=== PATIENT | female | born 1970 | race Caucasian/White ===

== ENCOUNTER 2024-08-21 13:08 | Outpatient (AMB) | payer OTHER, SELFPAY ==
--- NOTE | 2024-08-21 11:41 | A.OFFPC_ITS ---
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 Intake Note: New patient visit Pulverizer Operator Required: No Allergies No Known Allergies Allergy (Verified 08/21/24 13:15) Medication List - Last Reconciled 08/21/24 by Micheline Law PA-C ascorbate calcium (vitamin C) 500 mg PO DAILY bimatoprost 0.03% (Latisse) 1 appl topical BEDTIME cholecalciferol (vitamin D3) , fluoxetine 10 mg PO DAILY Tobacco use date assessed: 08/21/24 Dental Screening Dental Screen Date: 08/21/24 Did you have a dental visit in the last 12 months?: Yes Did you have a dental problem in the last 6 months where you did not have access to dental care?: No Was dental information given to patient?: Patient has dentist HPI CLINICAL TRIAL DATA MANAGER- PE request HPI Details Pt is a 54 y/o feamle who presents today to establish care. Hx of gilbert's disease, glaucoma suspect, basal cell carcinoma in 2022, hormonal/stress induced headaches, intermittent depression/mood changes. She states that she recently moved back to the area from [facility] and does have a list of things to go over. She overall takes very good care of herself. States that she eats healthy and exercises regularly. She uses exercise as a way to cope with stress. Takes supplements/vitamins. Psych: on and off of prozac for years which is effective. currently weaning down. No SI/HI. Wants to cut this out and vitamin. Derm: needs a derm in this area for bcc management as she had a basal cell removed from the right side of her face in 2022. She does complain today of shortened and sparse eyelashes. Requests eyelash serum. Mammo: utd, 2023 [facility] Interviews Intern: needs one Colonoscopy: 2020- due in 2029 Bone density: most menopause PFSH Medical History (Updated 08/21/24 @ 13:52 by Micheline Law PA-C) BCC (basal cell carcinoma of skin) Family History Paternal Grandmother FH: mental illness Father Alcoholic Other Skin cancer Substance abuse Social History (Updated 08/21/24 @ 13:15 by Ryanne Lancaster [facility]) Housing: House Alcohol intake: current Comment: 0-2 monthly Patient Tobacco Use Status: Never used Tobacco e-Cigarette/Vaping Use: Never Used Second Hand Smoke Exposure: No service: No Current occupational status: employed 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 1. Little interest or pleasure in doing things: not at all 2. Feeling down, depressed, or hopeless: not at all 3. Trouble falling or staying asleep, or sleeping too much: not at all 4. Feeling tired or having little energy: not at all 5. Poor appetite or overeating: not at all 6. Feeling bad about yourself - or that you are a failure or have let yourself or your family down: not at all 7. Trouble concentrating on things, such as reading the newspaper or watching television: not at all 8. Moving or speaking so slowly that other people could have noticed. Or the opposite - being so fidgety or restless that you have been moving around a lot more than usual: not at all 9. Thoughts that you would be better off or of hurting yourself in some way: not at all Total score: 0 Depression Screening Interpretation: Negative Depression Screening Done: Yes 17160 - PHQ-9 Billing: Yes Source: Developed by Drs. Carter Cardoso, Julia Cao, Pablo Marcelino and colleagues, with an educational mireya from [employer]. Thrive Questionnaire Date Thrive assessed: 08/14/24 I am a: Patient What is your living situation today?: I have a steady place to live Within the past 12 months, did the food you bought not last and you didn't have the money to get more?: Never true Within the past 12 months, did you worry whether your food would run out before you got money to buy more?: Never true Do you have trouble paying for medicines?: No Do you have trouble getting transportation to medical appointments?: No Do you have trouble paying your heating and electricity bill?: No Do you have trouble taking care of your child, family member or friend?: No Do you have trouble with day-to-day activities such as bathing, preparing meals, shopping, managing finances, etc.?: No Are you currently unemployed and looking for a job?: No Are you interested in more education?: No Currently or been in a relationship where the following occur: No concerns reported THRIVE Score: 0 AUDIT C Alcohol Use Questionnaire (AUDIT-C) 1. How often do you have a drink containing alcohol?: Monthly or less 2. How many drinks containing alcohol do you have on a typical day when you are drinking?: 1 or 2 3. How often do you have six or more drinks on one occasion?: Never Total Score: 1 KELLY-7 AMB Questionnaire KELLY-7 Date KELLY - 7 assessed: 08/21/24 Feeling nervous, anxious, or on edge: 1 = Several days Not being able to stop or control worryin = Not at all Worrying too much about different things: 1 = Several days Trouble relaxin = Several days Being so restless that it is hard to sit still: 1 = Several days Becoming easily annoyed or irritable: 1 = Several days Feeling afraid as if something awful might happen: 1 = Several days Total KELLY-7 score (0-4 normal; 5-9 mild; 10-14 moderate; 15-21 severe): 6 Source: Developed by Drs. Carter Cardoso, Julia Cao, Pablo Marcelino and colleagues, with an educational mireya from [employer]. KELLY-7 Assessment Billing KELLY-7 Assessment Tool: KELLY-7 Assessment 34315 Physical exam (Primary Care) Vital Signs: Last Vital Signs Pulse 63 08/21/24 13:18 BP 112/74 08/21/24 13:18 Pulse Ox 96 08/21/24 13:18 Oxygen Delivery Method Room Air 08/21/24 13:18 BMI result Body Mass Index 25.3 Tobacco/Smoking Status: Tobacco use Status Tobacco use date assessed 08/21/24 08/21/24 13:20 Patient Tobacco Use Status Never used Tobacco 08/21/24 13:20 e-Cigarette/Vaping Use Never Used 08/21/24 13:20 PHQ-9: PHQ-9 Score PHQ-9: Total score 0 08/21/24 13:29 Depression Screening Interpretation: Negative Thrive Assessment: Date of Thrive Assessment Date Thrive assessed 08/14/24 08/21/24 11:41 Currently or been in a relationship where the following occur: No concerns reported Const Orientation/consciousness: patient oriented x3 HENMT Ears: hearing grossly normal bilaterally Neck Thyroid: Thyroid normal Lymphatic: no lymphadenopathy noted Resp Auscultation: clear to auscultation bilaterally Cardio Rate: regular rate Rhythm: regular rhythm Heart sounds: S1 normal heart sound present and S2 normal heart sound present GI Inspection: Yes normal to inspection Palpation (GI): Soft to palpation and Other GI palpation findings present (nontender, no cva tenderness) Auscultation: normoactive bowel sounds Rectal Exam - Female: deferred Skin General skin exam: no rashes or lesions noted Neuro General: patient oriented x3, gait normal and no focal motor deficits Coding Level of Care Code New Pt Level 4 (39825) Complex EM visit Add On G2211 Diagnoses Vitamin D deficiency E55.9 Dysthymic disorder F34.1 Hx of basal cell carcinoma Z85.828 Frequent headaches R51.9 Additional Codes PHQ-9 - 91194 - PHQ-9 Billing: Yes ([id number]) KELLY-7 Assessment Billing - KELLY-7 Assessment Tool: KELLY-7 Assessment 09963 ([id number]) Assessment & Plan Assessment & Plan (1) Vitamin D deficiency: Code(s): E55.9 - Vitamin D deficiency, unspecified Category: Medical Plan: On supplement. We will check (2) Dysthymic disorder: Code(s): F34.1 - Dysthymic disorder Category: Medical Plan: Weaning off of fluoxetine. (3) Hx of basal cell carcinoma: Code(s): Z85.828 - Personal history of other malignant neoplasm of skin Category: Medical Plan: Referral to [facility]. (4) Frequent headaches: Code(s): R51.9 - Headache, unspecified Category: Medical Plan: Avoiding triggers. Plan Referral to gynecology Referral to [facility] Mammogram ordered Bone density ordered Latisse ordered. Discussed risks and benefits and adverse effects of this medication. Labs ordered. We will follow up pending test results. Orders: Orders Complete Blood Count Auto Diff Today E55.9 - Vitamin D deficiency, unspecified, F34.1 - Dysthymic disorder, R51.9 - Headache, unspecified, Z85.828 - Personal history of other malignant neoplasm of skin IRON PROFILE Today E55.9 - Vitamin D deficiency, unspecified, F34.1 - Dysthymic disorder, R51.9 - Headache, unspecified, Z85.828 - Personal history of other malignant neoplasm of skin TSH reflex Free T4 Today E55.9 - Vitamin D deficiency, unspecified, F34.1 - Dysthymic disorder, R51.9 - Headache, unspecified, Z85.828 - Personal history of other malignant neoplasm of skin Magnesium Today E55.9 - Vitamin D deficiency, unspecified, F34.1 - Dysthymic disorder, R51.9 - Headache, unspecified, Z85.828 - Personal history of other malignant neoplasm of skin Vitamin B12 and Folate Today E55.9 - Vitamin D deficiency, unspecified, F34.1 - Dysthymic disorder, R51.9 - Headache, unspecified, Z85.828 - Personal history of other malignant neoplasm of skin Lyme IgG/IgM w/reflex to WB Today E55.9 - Vitamin D deficiency, unspecified, F34.1 - Dysthymic disorder, R51.9 - Headache, unspecified, Z85.828 - Personal history of other malignant neoplasm of skin Vitamin D 1,25 dihydroxy Today E55.9 - Vitamin D deficiency, unspecified, F34.1 - Dysthymic disorder, R51.9 - Headache, unspecified XR DEXA axial skeleton Today N95.1 - Menopausal and female climacteric states, Z13.820 - Encounter for screening for osteoporosis MM screening mammo BI Today Z12.31 - Encounter for screening mammogram for malignant neoplasm of breast Comprehensive [place]. Panel Fast Today E55.9 - Vitamin D deficiency, unspecified, F34.1 - Dysthymic disorder, R51.9 - Headache, unspecified, Z85.828 - Personal history of other malignant neoplasm of skin UA CC w/rflx Micro + Cult Today E55.9 - Vitamin D deficiency, unspecified, F34.1 - Dysthymic disorder, R51.9 - Headache, unspecified, Z13.220 - Encounter for screening for lipoid disorders, Z85.828 - Personal history of other malignant neoplasm of skin Lipid Panel Today E55.9 - Vitamin D deficiency, unspecified, F34.1 - Dysthymic disorder, R51.9 - Headache, unspecified Referrals Dermatology Referral C44.91 - Basal cell carcinoma of skin, unspecified NEUROPHYSIOLOGICAL TECHNICIAN Referral Z01.419 - Encounter for gynecological examination (general) (routine) without abnormal findings Medications: New bimatoprost 0.03% (Latisse) 1 appl topical BEDTIME 5 mL 2RF bimatoprost 0.03% (Latisse) 1 appl topical BEDTIME 5 mL 2RF
[2024-08-21 13:18] VITALS: BP 112/74; PULSE 63; O2SAT 96; BMI 25.3
== END 2024-08-21 14:06 | disposition home or self-care (01) ==
PROVIDERS: PCP Physician Assistant; Visit Provider Physician Assistant
DX: E55.9 Vitamin D deficiency, unspecified (principal); F34.1 Dysthymic disorder; Z85.828 Personal history of other malignant neoplasm of skin; R51.9 Headache, unspecified

== ENCOUNTER → 2024-08-21 13:08 | Outpatient (BNVA) | payer OTHER, SELFPAY | PROVIDERS: PCP Physician Assistant; Visit Provider Physician Assistant | DX: E55.9 Vitamin D deficiency, unspecified (principal); F34.1 Dysthymic disorder; R51.9 Headache, unspecified; Z85.828 Personal history of other malignant neoplasm of skin | CPT/HCPCS: 96127 ==

== ENCOUNTER 2024-09-09 07:30 | Outpatient (REF) | payer OTHER, SELFPAY ==
[2024-09-09 12:10] LABS: Appearance Urine Cloudy; Color Urine Yellow; Glucose Urine UA Negative (Negative); Leukocyte Esterase Urine Negative (Negative); Nitrite Urine Negative (Negative); Urine Blood Negative (Negative); Urine Ketones Negative (Negative); Urine Protein Negative (Neg-Trace)
[2024-09-09 12:25] LABS: MANUAL DIFF FLAG NO
[2024-09-09 12:31] LABS: Basophils Absolute Auto 0.1 X10*3/uL (0.0-0.2); Basophils Percent Auto 1.5 % (0-2); Eosinophils Absolute Auto 0.1 X10*3/uL (0.0-0.4); Eosinophils Percent Auto 2.2 % (0-4); Hematocrit 37.7 % (37.0-47.0); Hemoglobin 12.7 g/dl (12.0-16.0); Imm Gran Abs Auto 0.01 X10*3/uL (0.00-0.03); Imm Gran Pct Auto 0.2 % (0.0-0.4); Lymphocytes Absolute Auto 1.2 X10*3/uL (1.2-4.9); Mean Corpuscular HGB Conc 33.7 g/dl (31.0-35.0); Mean Corpuscular Hemoglobin 30.5 pg (27.0-33.0); Mean Corpuscular Volume 90.4 fL (80.0-98.0); Mean Platelet Volume 9.5 fL (9.4-12.3); Monocytes Absolute Auto 0.4 X10*3/uL (0.1-1.2); Monocytes Percent Auto 9.1 % (2-11); Neutrophils Absolute Auto 2.3 x10*3/uL (2.0-8.3); Platelet Count 189 X10*3/uL (160-400); Red Blood Count 4.17 X10*6/uL (4.20-5.50); White Blood Count 4.1 X10*3/uL (4.8-10.8)
[2024-09-09 12:51] LABS: Alanine Aminotransferase 23 U/L (0-31); Albumin Level 4.5 g/dL (3.5-5.0); Alkaline Phosphatase 70 U/L (39-117); Anion Gap 10 (12-20); Aspartate Amino Transferase 24 U/L (5-31); Bilirubin Total 1.1 mg/dL (0.0-1.0); Blood Urea Nitrogen 8 mg/dL (9-16); Calcium 9.5 mg/dL (8.4-10.2); Carbon Dioxide 30 mmol/L (22-29); Chloride 107 mmol/L (96-108); Cholesterol 183 mg/dL (<200); Estimated Glomerular Filt Rate > 60; Glucose Fasting 88 mg/dL (60-99); HDL Cholesterol 104 mg/dL (>40); Iron 102 mcg/dL (30-160); LDL Cholesterol Calculated 71 mg/dL (<100); Percent Iron Saturation 38 % (15-50); Potassium 3.8 mmol/L (3.3-5.1); Sodium 143 mmol/L (135-145); Total Iron Binding Capacity 271 mcg/dL (228-428); Total Protein 7.2 g/dL (6.5-8.0); Triglycerides 41 mg/dL (<150); Unsaturated Iron Binding 169 ug/dL
[2024-09-09 13:09] LABS: TSH reflex Free T4 3.74 uIU/mL (0.32-4.0)
[2024-09-09 13:11] LABS: Folate 18.8 ng/mL (> or = 4.0); Vitamin B12 732 pg/mL (200-900)
[2024-09-10 21:59] LABS: Lyme Abs Screen <0.90 index
[2024-09-14 06:08] LABS: VITAMIN D (1,25 OH) D3 38 pg/mL; Vit D (1,25-Dihydroxy) Total 38 pg/mL (18-72); Vitamin D (1,25 OH) D2 <8 pg/mL
== END 2024-09-09 07:31 | disposition home or self-care (01) ==
LOC: HO.WFDLDS 07:30
PROVIDERS: Visit Provider Physician Assistant
DX: R51.9 Headache, unspecified (principal); Z85.828 Personal history of other malignant neoplasm of skin; F34.1 Dysthymic disorder; E55.9 Vitamin D deficiency, unspecified; Z13.220 Encounter for screening for lipoid disorders
CPT/HCPCS: 36415; 80053; 80061; 81003; 82607; 82652; 82746; 83540; 83735; 84443; 85025; 86617; 86618

== ENCOUNTER 2024-09-24 09:39 | Outpatient (AMB) | payer OTHER, SELFPAY ==
[2024-09-24 09:43] VITALS: BP 108/66; PULSE 62; TEMP 36.1; O2SAT 99; BMI 21.1
--- NOTE | 2024-09-24 09:43 | AM.OFFWIN_ITS ---
Intake Vital Signs 3 09/24/24 09:43 Height 5 ft 3.5 in Weight 121 lb BMI 21.1 BP 108/66 Blood Pressure Location Rt brachial Position Sitting Pulse 62 Pulse Source Pulse Oximeter Temp 97.0 F Temp Source Oral Pulse Oximetry (%) 99 Intake Visit Reasons: Rash on body /sinus /pain in face Intake Note: pt is here for neck and arm pit rash, sinus pain and congestion Patient Tobacco Use Status: Never used Tobacco Allergies No Known Allergies Allergy (Verified 09/24/24 10:10) Medication List - Last Reconciled 09/24/24 by MARGARETTE Valdovinos- ascorbate calcium (vitamin C) 500 mg PO DAILY bimatoprost 0.03% (Latisse) 1 appl topical BEDTIME cholecalciferol (vitamin D3) , fluoxetine 10 mg PO DAILY Do you need a note to return to daycare/school/sports/work: Yes HPI HPI Comments 2 History of Present Illness0 Details History of Present Illness The patient is a 54-year-old female presenting with complaints of rash and sinus congestion. The sinus symptoms began on Monday with associated nasal congestion, postnasal drip, and eye pressure. She reports intense neck and head pain, intermittent throat discomfort, and sensation in her ear. The rash appeared on Monday, after exhibiting initial itchiness, it now seems to have dried. She reports no new exposures to travel, detergents, or lotions prior to the onset of the rash. For sinus symptoms, she self-medicated with Sudafed, which provided momentary relief but was ultimately ineffective. The patient describes that her throat felt like swollen tonsils but did not worsen into severe sore throat. No significant nasal blockage relief has been achieved to date, despite supportive measures such as a humidifier at home. The patient does not express any exposure to new allergens or irritants recently. She has mild suspicion of a connection between her sinus issues and rash but unclear as per her observation. Exam Awake alert NAD Sclera and conjunctiva clear bilat Nares clear drainage, turbinates within normal limits, no sinus tenderness with palpation bilat TM intact and clear bilat MMM, pharynx mild PND, no exudate RRR LS CTAB Rash - see below L axilla, anterior neck Plan - Address sinusitis with supportive care , including nasal saline rinses and the use of a neti pot to relieve congestion. - Encourage the use of local honey as an antiviral remedy. - Monitor rash; consider topical steroid s if symptoms persist, but patient may choose to observe if they resolve spontaneously. - Continued management and evaluation of postnasal drip symptoms, and discuss potential initiation of antibiotic therapy for sinusitis if symptoms persist beyond 14 days. - Suggest lifestyle measures to alleviat e sinus symptoms, including maintaining a humid environment and avoiding known irritants. Patient was informed and verbally consented to the use of an ambient scribe for clinic note documentation during this visit. This note is constructed using voice recognition software. While every effort has been made to ensure accuracy in medical staff physician, still errors may have been included Sometimes, these errors may affect the content or meaning of the given sentence . Total time spent caring for the patient today was 30 minutes. This includes time spent before the visit reviewing the chart, time spent during the visit, and time spent after the visit on documentation [facility] Medical History (Updated 09/24/24 @ 10:21 [facility] BCC (basal cell carcinoma of skin) Family History Paternal Grandmother FH: mental illness Father Alcoholic Other Skin cancer Substance abuse Social History (Updated 08/21/24 @ 13:15 by Ryanne Lancaster CMA) Housing: House Alcohol intake: current Comment: 0-2 monthly Patient Tobacco Use Status: Never used Tobacco e-Cigarette/Vaping Use: Never Used Second Hand Smoke Exposure: No service: No Current occupational status: employed Current occupation: Theraputic training and support Current occupational exposures/hazards: No Cognitive needs: No Hearing needs: No Vision needs: Yes (glasses) Physical Exam Vital Signs: Last Vital Signs Temp 97.0 F 09/24/24 09:43 Pulse 62 09/24/24 09:43 BP 108/66 09/24/24 09:43 Pulse Ox 99 09/24/24 09:43 BMI result Body Mass Index 21.1 Assessment & Plan Assessment & Plan (1) Rash and nonspecific skin eruption: Code(s): R21 - Rash and other nonspecific skin eruption (2) Nasopharyngitis: Code(s): J00 - Acute nasopharyngitis [common cold] Plan . Coding Level of Care Code Est Pt Level 4 (73114) Diagnoses Rash and nonspecific skin eruption R21 Nasopharyngitis J00
== END 2024-09-24 10:22 | disposition home or self-care (01) ==
LOC: HO.HMCWIW 09:39
PROVIDERS: PCP Physician Assistant; Visit Provider Nurse Practitioner Family
DX: R21 Rash and other nonspecific skin eruption (principal); J00 Acute nasopharyngitis [common cold]

== ENCOUNTER → 2024-09-24 09:39 | Outpatient (BNVA) | payer OTHER, SELFPAY | PROVIDERS: PCP Physician Assistant; Visit Provider Nurse Practitioner Family ==

== ENCOUNTER → 2024-09-26 09:49 | Outpatient (AMB) | payer OTHER, SELFPAY ==
--- NOTE | 2024-09-26 09:45 | MHC.PC.OV ---
Intake Visit Reasons: BLOOD LEVEL CONCERNS Intake Note: Go over labs results. Certified Optician Required: No Allergies No Known Allergies Allergy (Verified 09/24/24 10:10) Tobacco use date assessed: 08/21/24 Dental Screening Dental Screen Date: 08/21/24 HPI BLOOD LEVEL CONCERNS HPI Details Patient is a 54-year-old female who presents today for a follow up. She does have some concerns about the lab work that was recently done. Her BUN was a little on the lower side along with the white blood cell count and red blood cell count. She did end up getting sick with cold symptoms shortly after getting the blood work. She is currently feeling better. She overall feels well and just has the remaining, lingering cold symptoms. Rash has improved/resolved. No sinus pain or pressure. No fevers or chills.. [facility] Medical History (Updated 09/26/24 @ 10:16 by Micheline Law PA-C) BCC (basal cell carcinoma of skin) Family History Paternal Grandmother FH: mental illness Father Alcoholic Other Skin cancer Substance abuse Social History Housing: House Alcohol intake: current Comment: 0-2 monthly Patient Tobacco Use Status: Never used Tobacco e-Cigarette/Vaping Use: Never Used Second Hand Smoke Exposure: No service: No Current occupational status: employed Current occupation: Theraputic training and support Current occupational exposures/hazards: No Cognitive needs: No Hearing needs: No Vision needs: Yes (glasses) Questionnaire Thrive Questionnaire Date Thrive assessed: 08/14/24 I am a: Patient What is your living situation today?: I have a steady place to live Within the past 12 months, did the food you bought not last and you didn't have the money to get more?: Never true Within the past 12 months, did you worry whether your food would run out before you got money to buy more?: Never true Do you have trouble paying for medicines?: No Do you have trouble getting transportation to medical appointments?: No Do you have trouble paying your heating and electricity bill?: No Do you have trouble taking care of your child, family member or friend?: No Do you have trouble with day-to-day activities such as bathing, preparing meals, shopping, managing finances, etc.?: No Are you currently unemployed and looking for a job?: No Are you interested in more education?: No Please select the resources that you would like help with: None Currently or been in a relationship where the following occur: No concerns reported THRIVE Score: 0 KELLY-7 AMB Questionnaire KELLY-7 Date KELLY - 7 assessed: 08/21/24 Source: Developed by Drs. Carter Cardoso, Julia Cao, Pablo Marcelino and colleagues, with an educational mireya from [employer]. Physical exam (Primary Care) Tobacco/Smoking Status: Tobacco use Status Tobacco use date assessed 08/21/24 09/26/24 09:47 Patient Tobacco Use Status Never used Tobacco 09/26/24 09:47 e-Cigarette/Vaping Use Never Used 09/26/24 09:47 Thrive Assessment: Date of Thrive Assessment Date Thrive assessed 08/14/24 09/26/24 09:47 Currently or been in a relationship where the following occur: No concerns reported Telehealth Telehealth Telehealth Platform: Telephone Location of provider rendering services: practice address Location of patient: address on file Patient Identification confirmed using: Name, : Yes Telehealth method: voice only Patient verbally consented to treatment: Yes Patient verbally consented to billing insurance company: Yes Patient informed of any privacy concerns related to visit: Yes Minutes spent on Phone/Video with Pt.: 15 Results Reviewed Results Reviewed: Laboratory Tests 09/09/24 07:32 WBC 4.1 L RBC 4.17 L Hgb 12.7 Hct 37.7 Plt Count 189 Sodium 143 Potassium 3.8 Chloride 107 Carbon Dioxide 30 H Anion Gap 10 L BUN 8 L Creatinine 0.77 Estimated GFR > 60 Fasting Glucose 88 Calcium 9.5 Magnesium 2.0 Iron 102 TIBC 271 % Saturation 38 Unsat Iron Binding 169 Total Bilirubin 1.1 H AST 24 ALT 23 Alkaline Phosphatase 70 Total Protein 7.2 Albumin 4.5 Triglycerides 41 Cholesterol 183 LDL Cholesterol, Calc 71 HDL Cholesterol 104 Vitamin B12 732 1,25 Dihydroxy Vit D 38 Folate 18.8 TSH 3.74 Coding Level of Care Code Tele Est Pt Level 2 (30977) Complex EM visit Add On G2211 Diagnoses Abnormal CBC R79.89 Nasopharyngitis J00 Assessment & Plan Assessment & Plan (1) Abnormal CBC: Code(s): R79.89 - Other specified abnormal findings of blood chemistry Category: Medical Plan: We reviewed labs at length today. We will recheck labs in 6-8 weeks. (2) Nasopharyngitis: Code(s): J00 - Acute nasopharyngitis [common cold] Category: Medical Plan: Improving. Follow up if anything worsens or changes. Orders: Orders Basic Metabolic Panel Today R79.89 - Other specified abnormal findings of blood chemistry Complete Blood Count Auto Diff Today R79.89 - Other specified abnormal findings of blood chemistry
== END ==
LOC: HO.HMCFM 09:49
PROVIDERS: PCP Physician Assistant; Visit Provider Physician Assistant
DX: R79.89 Other specified abnormal findings of blood chemistry (principal); J00 Acute nasopharyngitis [common cold]

== ENCOUNTER 2024-10-10 07:38 | Outpatient (REF) | payer OTHER, SELFPAY ==
--- NOTE | ~2024-10-10 | MM_ITS ---
EXAMINATION: MM SCREENING DIGITAL BREAST TOMOSYNTHESIS, BILATERAL CLINICAL INFORMATION: Screening. Asymptomatic. COMPARISON: Mammography: Comparison with mammography January 2019. TECHNIQUE: Digital breast mammography with tomosynthesis is performed in both the craniocaudal and mediolateral oblique views along with computer-aided detection (CAD). FINDINGS: The breasts are heterogeneously dense, which may obscure small masses (ACR BI-RADS breast composition Category c). There are no significant masses, abnormal calcifications, or other abnormalities. MM/MM tomosynthesis screening BI IMPRESSION: No mammographic evidence of malignancy. ASSESSMENT: BI-RADS BI-RADS 1 - Negative RECOMMENDATION: Routine annual mammography screening. 1 year F/U This examination should not preclude the clinical evaluation of a suspicious palpable abnormality. This patient's information was entered into a reminder system with a target due date for their next mammogram. Electronically signed by: Aissatou Petit DO 10/28/2024 09:22 AM [facility]
--- NOTE | ~2024-10-10 | MM_ITS ---
EXAMINATION: Dual-Energy X-ray Absorptiometry - Bone Density Study HISTORY: Estrogen deficiency TECHNIQUE: [place] Dual energy absorptiometry (DEXA) of the lumbar spine, total left hip, and femoral neck was performed. COMPARISON: There are no prior studies for comparison. FINDINGS: The bone mineral density of the lumbar spine is 1.083 with a T-score of -0.8, and a Z-score of 0.2. The bone mineral density of the left total hip is 0.865 with a T-score of -1.1, and a Z-score of -0.3. The bone mineral density of the left femoral neck is 0.819 with a T-score of -1.6, and a Z-score of -0.4. FRACTURE RISK: The FRAX index suggests a risk of major osteoporotic fracture of 5.0%, and of hip fracture 0.5%. MM/XR DEXA axial skeleton IMPRESSION: Based on bone mineral density, and according to World Health Organization (WHO) criteria, the diagnosis is consistent with osteopenia. All bone density values are in grams per centimeter squared. At this facility, the least significant change in BMD with 95% confidence is 0.022 at the lumbar spine, 0.027 at the hip, and 0.023 at the distal 1/3 radius. Electronically signed by: Carter Navarro MD 10/10/2024 08:59 AM [facility]
== END 2024-10-10 07:39 | disposition home or self-care (01) ==
LOC: HO.MAMMO 07:38
PROVIDERS: PCP Physician Assistant; Visit Provider Physician Assistant
DX: Z12.31 Encounter for screening mammogram for malignant neoplasm of breast (principal); Z13.820 Encounter for screening for osteoporosis; Z78.0 Asymptomatic menopausal state
CPT/HCPCS: 77063; 77067; 77080

== ENCOUNTER → 2024-10-10 08:15 | Outpatient (BNV) | payer OTHER, SELFPAY | PROVIDERS: PCP Physician Assistant; Visit Provider Radiology Diagnostic Radiology | DX: Z12.31 Encounter for screening mammogram for malignant neoplasm of breast (principal) | CPT/HCPCS: 77063; 77067 ==

== ENCOUNTER 2025-01-02 07:37 | Outpatient (REF) | payer OTHER, SELFPAY ==
--- OUTSIDE RECORDS SUMMARY | 2025-01-02 07:39 | XMS_ITS | Clinical Summary ---
Author Organization [facility] Address [address] [place] [address] Care Team Providers Care Premix Operator Concentrate Name Role Phone Unavailable Primary Care Provider Unavailabl e Allergies No known active allergies Medications Engelhard-3 Fatty Acids (FISH OIL) 1000 MG Cap 1 by mouth twice a day 90 Cap 05/02/2019 Active Ascorbic Acid (VITAMIN C) 500 MG Cap 1 CAPSULE TWICE DAILY 60 Cap 05/02/2019 Active Cholecalciferol (VITAMIN D) 1000 units Tab 1 TABLET DAILY 30 Tab 05/02/2019 Active Active Problems Problem Noted Date Diagnosed Date Anxiety 05/02/2019 Overview (05/02/2019): Has been in counseling on and off for years and feels it is very useful. No current symptoms. Dense breast tissue on mammogram 05/02/2019 Overview (05/02/2019): Mostly fatty. No family history of breast cancer. Will monitor conservatively. She is in agreement. Family History Medical History Relation Name Comments Alcohol/Drug Father Alcoholic Cancer (?Type) Mother Skin Hypertension Mother Relation Name Status Comments Father Mother Social History Tobacco Use Types Packs/Day Years Used Date Smoking Tobacco: Never Smokeless Tobacco: Never Alcohol Use Standard Drinks/Week Comments Yes 0 (1 standard drink = 0.6 oz pur e alcohol) 1- a week PHQ-2 Answer Date Recorded PHQ-2 Score 1 06/23/2019 Comments Unknown Sex and Gender Information Value Date Recorded Sex Assigned at Not on file Legal Sex Female 8:38 AM EDT Gender Identity Not on file Sexual Orientation Not on file Last Filed Vital Signs Vital Sign Reading Time Taken Comments Blood Pressure 104/72 05/02/2019 8:04 AM EDT Pulse 70 05/02/2019 8:04 AM EDT Temperature - - Respiratory Rate - - Oxygen Saturation - - Inhaled Oxygen Concentration - - Weight 53.8 kg (118 lb 9.6 oz) 05/02/2019 8:04 A M EDT Height 167 cm (5' 5.75 ) 05/02/2019 8:04 AM EDT Body Mass Index 19.29 05/02/2019 8:04 AM EDT Plan of Treatment Health Maintenance Due Date Last Done Comments Hepatitis C Screening 1972 DTaP/Tdap/Td (1 - Tdap) 1990 Hep B (1 of 3 - 19+ 3-dose series) 1991 Mammogram/Breast Imaging 01/25/2020 019, 11/02/2017, 10/24/2017 Pap Smear 11/20/2020 11/20/2017 Pneumococcal 50+ years (1 of 1 - PCV) 2022 Zoster (Shingrix) (1 of 2) 2022 COVID-19 Vaccine (1 - 2023-2 5 season) 2024 Influenza (#1) 2024 HPV Vaccine Aged Out No longer eligi ble based on patient's age to complete this topic Hep A Aged Out No longer eligi ble based on patient's age to complete this topic Hib Aged Out No longer eligi ble based on patient's age to complete this topic Meningococcal ACWY Aged Out No longer eligible based on patient's age to complete this topic Procedures * Due to [place] law, this organization might not be sharing negative HIV tests. Procedure Name Priority Date/Time Associated Diagnosis Comments SCREENING MAMMOGRAPHY BILATERAL, 2 VIEWS EACH BREAST, INCLUDING CAD 01/24/2019 PAP SMEAR 11/20/2017 from Last 3 Months or Most Recently Relevant to Health Maintenance Results * Due to [place] law, this organization might not be sharing negative HIV tests. * SCREENING MAMMOGRAPHY BILATERAL, 2 VIEWS EACH BREAST, INCLUDING CAD (01/24/2019) 01/24/2019 us Unknown Provider GENERAL IMAGING- OTHER Final Re sult * PAP SMEAR (11/20/2017) us Non Rmg Unknown Pcp PATHOLOGY Final Result from Last 3 Months or Most Recently Relevant to Health Maintenance
--- OUTSIDE RECORDS SUMMARY | 2025-01-02 07:39 | XMS_ITS | Clinical Summary ---
Author Organization [facility] [place] [address] [place] [address] Care Team Providers Care Director Of Therapy Services Name Role Phone Unavailable Primary Care Provider Unavailabl e Allergies Active Allergy Reactions Criticality Noted Date Comments Opioids-Meperidine And Related 07/13 Medications ascorbic acid (VITAMIN C) 250 mg tablet Take 250 mg by mouth 1 (one) time each day. Active cholecalciferol (VITAMIN D-3) 25 mcg (1,000 unit) tablet Take 1,000 Units by mouth 1 (one) time each day. Active Nurtec ODT 75 mg tablet,disinteg rating TAKE 1 TABLET ON TONGUE DAILY DIRECTED NEEDED FOR MIGRAINE Active L-LYSINE ORAL Take by mouth. Active FLUoxetine (PROzac) 10 mg capsule Take 10 mg by mouth 1 (one) time each day. 11/22/2023 Active Active Problems No known active problems Social History Tobacco Use Types Packs/Day Years Used Date Smoking Tobacco: Never Smokeless Tobacco: Never Tobacco Cessation:Counseling Given: Not Answered Alcohol Use Standard Drinks/Week Comments Yes 1 (1 standard drink = 0.6 oz pur e alcohol) Comments Unknown Sex and Gender Information Value Date Recorded Sex Assigned at Not on file Legal Sex Female 7:36 AM PST Gender Identity Female 09/25/2022 7:26 AM PST Sexual Orientation Not on file Last Filed Vital Signs Vital Sign Reading Time Taken Comments Blood Pressure 113/79 11/13/2023 2:15 PM EST Pulse 63 05/12/2023 6:59 AM EDT Temperature - - Respiratory Rate - - Oxygen Saturation - - Inhaled Oxygen Concentration - - Weight - - Height - - Body Mass Index - - Plan of Treatment Health Maintenance Due Date Last Done Comments Velscope Screening 05/13/2024 11/13/2023, 09/27/2022 Dental Oral Exam 05/14/2024 11/13/2023, , 09/27/2022 Dental Prophylaxis 05/14/2024 11/13/2023, 0 05/12/2023, 09/27/2022 Dental X-Ray: Bitewings 05/14/2024 11/13/2023 Dental X-Ray: Full Mouth 09/29/2025 09/28/2022, 11/2022 Dental X-Ray: Panoramic 09/29/2025 09/28/2022, 09/27 Meningococcal B Vaccine Aged Out No l onger eligible based on patient's age to complete this topic Procedures Procedure Name Priority Date/Time Associated Diagnosis Comments ADJUNCTIVE PRE-DIAGNOSTIC TEST THAT AIDS IN DETECTION OF MUCOSAL ABNORMALITIES Routine 11/13/2023 2:15 PM EST Encounter for dental examination and cleaning without abnormal findings PROPHYLAXIS - ADULT Routine 11/13/2023 2 :15 PM EST Encounter for dental examination and cleaning without abnormal findings PERIODIC ORAL EVALUATION - ESTABLISHED PATIENT Routine 11/13/2023 2:00 PM EST Encounter for dental examination and cleaning without abnormal findings PANORAMIC RADIOGRAPHIC IMAGE Routine 09/27/2022 8:00 AM EST INTRAORAL - COMPREHENSIVE SERIES OF RADIOGRAPHIC IMAGES Routine 09/27/2022 8:00 AM EST from Last 3 Months or Most Recently Relevant to Health Maintenance Insurance [facility] PPO Member Subscriber Plan / Payer (Ef fective 2023-Present) Name:Toya Perez Relation to Subscriber:Self Name:Toya Perez Payer ID:[id number] Type:Not on file Address: [address] [id number] [facility] [place]
--- OUTSIDE RECORDS SUMMARY | 2025-01-02 07:39 | XMS_ITS | Encounter Summary ---
Author Organization [facility] [place] [address] [place] [address] Care Team Providers Care Coastal Tug Mate Name Role Phone Unavailable Primary Care Provider Unavailabl e Prior Encounters Date Type Department Care Team Description 11/28/2023 8:00 AM EST Office Visit [facility] [address] [facility], [facility] & [address] [place] [phone] Tiny Roblero, DMD 11/17/2023 3:15 PM EST Office Visit [facility] [address] [facility], [facility] & [address] [place] [phone] Tiny Roblero, DMD 11/13/2023 2:15 PM EST Office Visit [facility] [address] [facility], [facility] & [address] [place] [phone] Alma Brown [facility] Encounter for dental examination and cleaning without abnormal findings (Primary Dx) 11/13/2023 2:00 PM EST Office Visit [facility] [address] [facility], [facility] 2 & [address] [place] [address] Tiny Roblero, DMD Encounter for dental examination and cleaning without abnormal findings (Primary Dx) 05/12/2023 7:00 AM EDT Office Visit [facility] [address] [facility], [facility] 2 & [address] [place] [phone] Alma Brown [facility] 05/12/2023 7:00 AM EDT Office Visit [facility] [address] [facility], [facility] [address] & [address] [place] [phone] Tiny Roblero, DMD 09/27/2022 Travel 09/27/2022 9:00 AM EST Office Visit [facility] [address] [facility], [facility] 2 & [address] [place] [phone] KevinAlma ramirez, [facility] 09/27/2022 8:00 AM EST Office Visit [facility] [address] [facility], [facility] 2 & [address] [place] [phone] Tiny Roblero, DMD Last Filed Vital Signs Vital Sign Reading Time Taken Comments Blood Pressure 113/79 11/13/2023 2:15 PM EST Pulse 63 05/12/2023 6:59 AM EDT Temperature - - Respiratory Rate - - Oxygen Saturation - - Inhaled Oxygen Concentration - - Weight - - Height - - Body Mass Index - - Plan of Treatment Not on file Procedures Procedure Name Priority Date/Time Associated Diagnosis Comments OFFICE VISIT FOR OBSERVATION (DURING REGULARLY SCHEDULED HOURS) - NO OTHER SERVICES PERFORMED Routine 11/28/2023 8:00 AM EST GP CLEAR AUTHORIZATION COORDINATOR CONSULTATION Routine 11/17/2023 3:15 PM EST ADJUNCTIVE PRE-DIAGNOSTIC TEST THAT AIDS IN DETECTION OF MUCOSAL ABNORMALITIES Routine 11/13/2023 2:15 PM EST Encounter for dental examination and cleaning without abnormal findings ORAL HYGIENE INSTRUCTIONS Routine 2023 2:15 PM EST Encounter for dental examination and cleaning without abnormal findings TOPICAL APPLICATION OF FLUORIDE VARNISH Routine 11/13/2023 2:15 PM EST Encounter for dental examination and cleaning without abnormal findings PROPHYLAXIS - ADULT Routine 11/13/2023 2 :15 PM EST Encounter for dental examination and cleaning without abnormal findings BITEWINGS - FOUR RADIOGRAPHIC IMAGES Routine 11/13/2023 2:00 PM EST PERIODIC ORAL EVALUATION - ESTABLISHED PATIENT Routine 11/13/2023 2:00 PM EST Encounter for dental examination and cleaning without abnormal findings ORAL HYGIENE INSTRUCTIONS Routine 2022 7:00 AM EDT TOPICAL APPLICATION OF FLUORIDE VARNISH Routine 05/12/2023 7:00 AM EDT PROPHYLAXIS - ADULT Routine 05/12/2023 7 :00 AM EDT PERIODIC ORAL EVALUATION - ESTABLISHED PATIENT Routine 05/12/2023 7:00 AM EDT ORAL HYGIENE INSTRUCTIONS Routine 2022 9:00 AM EST TOPICAL APPLICATION OF FLUORIDE VARNISH Routine 09/27/2022 9:00 AM EST PROPHYLAXIS - ADULT Routine 09/27/2022 9 :00 AM EST ADJUNCTIVE PRE-DIAGNOSTIC TEST THAT AIDS IN DETECTION OF MUCOSAL ABNORMALITIES Routine 09/27/2022 9:00 AM EST INTRAORAL PHOTO Routine 09/27/2022 8:00 AM EST INTRAORAL PHOTO Routine 09/27/2022 8:00 AM EST INTRAORAL PHOTO Routine 09/27/2022 8:00 AM EST INTRAORAL PHOTO Routine 09/27/2022 8:00 AM EST PANORAMIC RADIOGRAPHIC IMAGE Routine 09/27/2022 8:00 AM EST INTRAORAL - COMPREHENSIVE SERIES OF RADIOGRAPHIC IMAGES Routine 09/27/2022 8:00 AM EST COMPREHENSIVE ORAL EVALUATION - NEW OR ESTABLISHED PATIENT Routine 09/27/2022 8:00 AM EST 6 F COMPOSITE FILLING Routine 09/27/2022 12:00 AM EST 19 O COMPOSITE FILLING Routine 3 12:00 AM EST 18 O COMPOSITE FILLING Routine 12:00 AM EST 31 O COMPOSITE FILLING Routine 3 12:00 AM EST 3 O COMPOSITE FILLING Routine 09/27/2022 12:00 AM EST 2 O COMPOSITE FILLING Routine 09/27/2022 12:00 AM EST Visit Diagnoses Diagnosis Start Date Encounter for dental examination and cleaning without abnormal findings 11/13/2023 Encounter for dental examination and cleaning without abnormal findings 11/13/2023 Insurance [facility] [place] [address] [address] [place] [phone] [facility]
--- OUTSIDE RECORDS SUMMARY | 2025-01-02 07:39 | XMS_ITS | Encounter Summary ---
Author Organization [facility] Address [address] [place] [address] Care Team Providers Care House Shorer Name Role Phone Michelle Zavala NP Primary Care Provider [phone] Encounter Details Date Type Department Care Team ([facility] st Contact Info) Description 07/12/2019 [facility] Internal Medicine [address] [place] [phone] Michelle Zavala NP [address] [place] [phone] Social History Tobacco Use Types Packs/Day Years [...] on file Sexual Orientation Not on file documented as of this encounter Progress Notes * Michelle Zavala NP - 07/12/2019 7:00 AM EDT Normal/stable. Divesquaret message sent. documented in this encounter Plan of Treatment Not on file documented as of this encounter Procedures * Due to [place] state law, this organization might not be sharing negative HIV tests. Procedure Name Priority Date/Time Associated Diagnosis Comments HEMOGLOBIN A1C Routine 07/12/2019 7:00 AM EDT Diabetes mellitus screening LIPID PANEL WITH REFLEX TO DIRECT LDL Routine 07/12/2019 7:00 AM EDT Lipid screening VENIPUNCTURE Routine 07/12/2019 7:00 AM EDT Diabetes mellitus screening documented in this encounter Results * Due to [place] state law, this organization might not be sharing negative HIV tests. * HEMOGLOBIN A1C (07/12/2019 7:00 AM EDT) Hemoglobin A1C 4.9 <5.7 % of total Hgb [facility] Comment: For the purpose of screening for the presence of diabetes: <5.7% ? Consistent with the absence of diabetes 5.7-6.4% ?Consistent with increased risk for diabetes ?(prediabetes) > or =6.5% ??Consistent with diabetes This assay result is consistent with a decreased risk of diabetes. Currently, no consensus exists regarding use of hemoglobin A1c for diagnosis of diabetes in children. According to [place] Diabetes Association (ADA) guidelines, hemoglobin A1c <7.0% represents optimal control in non- diabetic patients. Different metrics may apply to specific patient populations. Standards of Medical Care in Diabetes(ADA). Estimated Average Glucose 97 mg/dL (calc) [facility] 07/12/2019 7:00 AM EDT 07/12/2019 9:38 AM EDT Narrative Resulting Agency Comment [id number] Michelle Zavala NP LABORATORY Final Result [facility] [address] [place] [address] * LIPID PANEL WITH REFLEX TO DIRECT LDL (07/12/2019 7:00 AM EDT) Cholesterol 171 <200 mg/dL [facility] HDL Cholesterol 92 >50 mg/dL [facility] Triglyceride 44 <150 mg/dL [facility] LDL Cholesterol 66 mg/dL (calc) [facility] Comment: Reference range: <100 Desirable range <100 mg/dL for primary prevention; ?? <70 mg/dL for patients with CHD or diabetic patients with > or = 2 CHD risk factors. LDL-C is now calculated using the Liam calculation, which is a validated novel method providing better accuracy than the Friedewald equation in the estimation of LDL-C. Gunnar ROBLES et al. ANAMIKA. 2013;310(31): 5761-3021 (http://education.IronGate/faq/OIR858) CHOL/HDL Ratio 1.9 <5.0 (calc) [facility] Cholesterol Non-HDL 79 <130 mg/dL (calc) [facility] Comment: For patients with diabetes plus 1 major ASCVD risk factor, treating to a non-HDL-C goal of <100 mg/dL (LDL-C of <70 mg/dL) is considered a therapeutic option. 07/12/2019 7:00 AM EDT 07/12/2019 9:38 AM EDT Narrative Resulting Agency Comment [id number] Michelle Zavaal NP LABORATORY Final Result Performing Organization Address City/State/[facility] Co de Phone Number [facility] [address] [place] [address] * BASIC METABOLIC PANEL WITH (GFR) (07/12/2019 7:00 AM EDT) [facility] Glucose 88 65 - 99 mg/dL [facility] Comment:Fasting reference in terval Urea Nitrogen Blood (BUN) 13 7 - 25 mg/dL [facility] Creatinine 0.76 0.50 - 1.10 mg/dL [facility] EGFR 94 > OR = 60 mL/min/1. 73m2 [facility] GFR () 109 > OR = 60 mL/min/1. 73m2 [facility] BUN/Creatinine Ratio NOT APPLICABLE 6 - 22 (calc) [facility] Sodium 141 135 - 146 mmol/L [facility] Potassium 4.2 3.5 - 5.3 mmol/L [facility] Chloride 107 98 - 110 mmol/L [facility] Carbon dioxide 25 20 - 32 mmol/L [facility] Calcium 9.7 8.6 - 10.2 mg/dL [facility] 07/12/2019 7:00 AM EDT 07/12/2019 9:38 AM EDT Narrative [facility] - 07/12/2019 8:19 PM EDT Please note that this estimated GFR does not include an adjustment for the patient's height or weight, and can therefore, be viewed as reliable only for patients with heights between 60 and 72 . More precise quantification using a 24-hour urine sample or height-based algorithm is recommended for patients outside of this range of height and for those individuals with more precise needs for GFR calculation. Resulting Agency Comment [id number] Michelle Zavala NP LABORATORY Final Result Performing Organization Address City/State/[facility] Co de Phone Number [facility] [address] [place] [address] documented in this encounter Visit Diagnoses Diagnosis Diabetes mellitus screening Screening for diabetes mellitus Lipid screening Screening for lipoid disorders documented in this encounter Care Teams House Shorer Relationship Specialty Start Date End Date Michelle Zavala NP [address] [place] [phone] PCP - General Internal Medicine 03/06/19 10/10/22 documented as of this encounter
[2025-01-02 11:48] LABS: MANUAL DIFF FLAG NO
[2025-01-02 12:06] LABS: Basophils Absolute Auto 0.1 X10*3/uL (0.0-0.2); Basophils Percent Auto 1.4 % (0-2); Eosinophils Absolute Auto 0.1 X10*3/uL (0.0-0.4); Eosinophils Percent Auto 2.9 % (0-4); Hemoglobin 13.8 g/dl (12.0-16.0); Imm Gran Abs Auto 0.02 X10*3/uL (0.00-0.03); Imm Gran Pct Auto 0.5 % (0.0-0.4); Lymphocytes Absolute Auto 1.2 X10*3/uL (1.2-4.9); Lymphocytes Percent Auto 26.2 % (20-40); Mean Corpuscular HGB Conc 34.5 g/dl (31.0-35.0); Mean Corpuscular Hemoglobin 30.3 pg (27.0-33.0); Mean Corpuscular Volume 87.7 fL (80.0-98.0); Mean Platelet Volume 9.3 fL (9.4-12.3); Monocytes Absolute Auto 0.4 X10*3/uL (0.1-1.2); Monocytes Percent Auto 9.3 % (2-11); Neutrophils Absolute Auto 2.6 x10*3/uL (2.0-8.3); Neutrophils Percent Auto 59.7 % (45-73); Platelet Count 173 X10*3/uL (160-400); Red Blood Count 4.56 X10*6/uL (4.20-5.50); Red Cell Distribution Width 13.2 % (11.0-16.0); White Blood Count 4.4 X10*3/uL (4.8-10.8)
[2025-01-02 12:08] LABS: Anion Gap 12 (12-20); Blood Urea Nitrogen 16 mg/dL (9-16); Calcium 10.2 mg/dL (8.4-10.2); Carbon Dioxide 30 mmol/L (22-29); Chloride 105 mmol/L (96-108); Estimated Glomerular Filt Rate > 60; Glucose Random 85 mg/dL (60-115); Potassium 4.3 mmol/L (3.3-5.1); Sodium 143 mmol/L (135-145)
== END 2025-01-02 07:38 | disposition home or self-care (01) ==
LOC: HO.WFDLDS 07:37
PROVIDERS: Visit Provider Physician Assistant
DX: R79.89 Other specified abnormal findings of blood chemistry (principal)
CPT/HCPCS: 36415; 80048; 85025

== ENCOUNTER 2025-01-08 15:21 | Outpatient (AMB) | payer OTHER, SELFPAY ==
--- NOTE | 2025-01-08 15:33 | MHC.PC.OV ---
Vital Signs 01/08/25 15:44 Height 5 ft 3.5 in Weight 122 lb 6 oz BMI 21.3 BP 92/66 Blood Pressure Location Lt brachial Position Sitting Respiration 12 Pulse 73 Pulse Source Pulse Oximeter Pulse Oximetry (%) 98 Oxygen Delivery Method Room Air Intake Visit Reasons: Physical Intake Note: Physical Community Service Officer Required: No Allergies No Known Allergies Allergy (Verified 01/08/25 15:35) Medication List - Last Reconciled 01/08/25 by Micheline Law PA-C ascorbate calcium (vitamin C) 500 mg PO DAILY bimatoprost 0.03% (Latisse) 1 appl topical BEDTIME [calcium 360 PO] cholecalciferol (vitamin D3) , [fish oil 1200 PO] fluoxetine 10 mg PO DAILY [milk thistle PO] [milk thistle 240 PO] [strontium 680 PO] [vitamin d3 1000 PO] Tobacco use date assessed: 01/08/25 Dental Screening Dental Screen Date: 08/21/24 HPI Physical HPI Details Pt is a 54 y/o feamle who presents today for a physical exam. Hx of gilbert's disease, glaucoma suspect, basal cell carcinoma in 2022, hormonal/stress induced headaches, intermittent depression/mood changes. She overall takes very good care of herself. States that she eats healthy and exercises regularly. She uses exercise as a way to cope with stress. Takes supplements/vitamins. Psych: on and off of prozac for years which is effective. currently weaning down. No SI/HI. Wants to cut this out and vitamin. Derm: needs a derm in this area for bcc management as she had a basal cell removed from the right side of her face in 2022. She has found Latisse helpful with her eyelashes. 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 Colonoscopy: 2020- due in 2029 Bone density: UTD- 2024 osteopenia [facility] Medical History (Updated 01/08/25 @ 15:50 by Micheline Law PA-C) BCC (basal cell carcinoma of skin) Family History Paternal Grandmother FH: mental illness Father Alcoholic Other Skin cancer Substance abuse Social History Housing: House Alcohol intake: current Comment: 0-2 monthly Patient Tobacco Use Status: Never used Tobacco e-Cigarette/Vaping Use: Never Used Second Hand Smoke Exposure: No service: No Current occupational status: employed 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 1. Little interest or pleasure in doing things: several days 2. Feeling down, depressed, or hopeless: not at all 3. Trouble falling or staying asleep, or sleeping too much: not at all 4. Feeling tired or having little energy: several days 5. Poor appetite or overeating: not at all 6. Feeling bad about yourself - or that you are a failure or have let yourself or your family down: not at all 7. Trouble concentrating on things, such as reading the newspaper or watching television: not at all 8. Moving or speaking so slowly that other people could have noticed. Or the opposite - being so fidgety or restless that you have been moving around a lot more than usual: not at all 9. Thoughts that you would be better off or of hurting yourself in some way: not at all Total score: 2 Depression Screening Interpretation: Negative Depression Screening Done: Yes 07656 - PHQ-9 Billing: Yes Source: Developed by Drs. Carter Cardoso, Julia Cao, Pablo Marcelino and colleagues, with an educational mireya from [employer]. Thrive Questionnaire Date Thrive assessed: 01/08/25 I am a: Patient What is your living situation today?: I have a steady place to live Within the past 12 months, did the food you bought not last and you didn't have the money to get more?: Never true Within the past 12 months, did you worry whether your food would run out before you got money to buy more?: Never true Do you have trouble paying for medicines?: No Do you have trouble getting transportation to medical appointments?: No Do you have trouble paying your heating and electricity bill?: No Do you have trouble taking care of your child, family member or friend?: No Do you have trouble with day-to-day activities such as bathing, preparing meals, shopping, managing finances, etc.?: No Are you currently unemployed and looking for a job?: No Are you interested in more education?: No Please select the resources that you would like help with: None Currently or been in a relationship where the following occur: No concerns reported THRIVE Score: 0 AUDIT C Alcohol Use Questionnaire (AUDIT-C) 1. How often do you have a drink containing alcohol?: Monthly or less 2. How many drinks containing alcohol do you have on a typical day when you are drinking?: 1 or 2 3. How often do you have six or more drinks on one occasion?: Never Total Score: 1 KELLY-7 AMB Questionnaire KELLY-7 Date KELLY - 7 assessed: 01/08/25 Feeling nervous, anxious, or on edge: 2 = More than half the days Not being able to stop or control worryin = Not at all Worrying too much about different things: 1 = Several days Trouble relaxin = More than half the days Being so restless that it is hard to sit still: 1 = Several days Becoming easily annoyed or irritable: 1 = Several days Feeling afraid as if something awful might happen: 1 = Several days Total KELLY-7 score (0-4 normal; 5-9 mild; 10-14 moderate; 15-21 severe): 8 Source: Developed by Drs. Carter Cardoso, Julia Cao, Pablo Marcelino and colleagues, with an educational mireya from [employer]. KELLY-7 Assessment Billing KELLY-7 Assessment Tool: KELLY-7 Assessment 39011 Physical exam (Primary Care) Tobacco/Smoking Status: Tobacco use Status Tobacco use date assessed 08/21/24 01/08/25 15:34 Patient Tobacco Use Status Never used Tobacco 01/08/25 15:34 e-Cigarette/Vaping Use Never Used 01/08/25 15:34 PHQ-9: PHQ-9 Score PHQ-9: Total score 2 01/08/25 15:34 Depression Screening Interpretation: Negative Thrive Assessment: Date of Thrive Assessment Date Thrive assessed 08/14/24 01/08/25 15:34 Currently or been in a relationship where the following occur: No concerns reported Const Orientation/consciousness: patient oriented x3 HENMT Ears: hearing grossly normal bilaterally and TM's normal bilaterally General nose exam: No nasal polyps present Face and sinus: Yes sinuses nontender Mouth: Normal oral and palatal mucosa present Eyes Pupils: Equal, round and reactive pupils present EOM: EOMs intact bilaterally Neck Neck: Yes full ROM and Yes no lymphadenopathy Thyroid: Thyroid normal Chest Chest palpation & inspection: normal inspection of the chest Resp Auscultation: clear to auscultation bilaterally Cardio Rate: regular rate Rhythm: regular rhythm Heart sounds: S1 normal heart sound present and S2 normal heart sound present Peripheral pulses: Peripheral pulses 2+ throughout GI Other: Soft, nontender Auscultation: normal bowel sounds Rectal Exam - Female: deferred General: Yes no CVA tenderness Back/Spine/Pelvis Other: Nontender Back: no CVA tenderness Skin General skin exam: no rashes or lesions noted Neuro General: patient oriented x3, gait normal, CN's II-XI intact bilaterally and deep tendon reflexes 2+ bilaterally Cranial nerves: Yes Equal, round and reactive pupils present Motor exam (neuro): 5/5 motor strength present throughout Sensory Exam: double simultaneous stimulation for sensation normal Coordination: [id number] test normal and Romberg test negative Extrem General: Yes normal to inspection and Yes full ROM Psych Affect: normal affect Attitude: cooperative Thought process: Normal thought process present Thought content: Normal thought content present Insight: Good insight present (Psych) Judgement: Good judgement present (Psych) Results Reviewed Results Reviewed: Laboratory Tests 01/02/25 07:38 WBC 4.4 L RBC 4.56 Hgb 13.8 Hct 40.0 Plt Count 173 Sodium 143 Potassium 4.3 Chloride 105 Carbon Dioxide 30 H Anion Gap 12 BUN 16 Creatinine 0.79 Estimated GFR > 60 Random Glucose 85 Calcium 10.2 D Coding Level of Care Code Est Pt Prev Care 40-64y(63516) Diagnoses Routine general medical examination at a health care facility Z00.00 Osteopenia M85.80 Additional Codes PHQ-9 - 70226 - PHQ-9 Billing: Yes ([id number]) KELLY-7 Assessment Billing - KELLY-7 Assessment Tool: KELLY-7 Assessment 38617 ([id number]) Assessment & Plan Assessment & Plan (1) Routine general medical examination at a health care facility: Code(s): Z00.00 - Encounter for general adult medical examination without abnormal findings Plan: Health maintenance reviewed. Labs reviewed. (2) Osteopenia: Code(s): M85.80 - Other specified disorders of bone density and structure, unspecified site Category: Medical Plan: She would like to consult with endocrinology. Referral placed. Orders: Referrals Endocrinology Referral M85.80 - Other specified disorders of bone density and structure, unspecified site
[2025-01-08 15:44] VITALS: BP 92/66; PULSE 73; RESP 12; O2SAT 98; BMI 21.3
--- OUTSIDE RECORDS SUMMARY | 2025-01-08 17:58 | XMS_ITS | Encounter Summary ---
Author Organization [facility] Address [address] [place] [address] Care Team Providers Care Pharmacy Technician Trainee Name Role Phone Michelle Zavala NP Primary Care Provider [phone] Encounter Details Date Type Department Care Team ([facility] st Contact Info) Description 07/12/2019 [facility] Internal Medicine [address] [place] [phone] Michelle Zavala NP [address] [place] [id number] Social History Tobacco Use Types Packs/Day Years [...] NP - 07/12/2019 7:00 AM EDT Normal/stable. Instant AVt message sent. documented in this encounter Plan of Treatment Not on file documented as of this encounter Procedures * Due to [place] state law, this organization might not be sharing negative HIV tests. Procedure Name Priority Date/Time Associated Diagnosis Comments HEMOGLOBIN A1C Routine 07/12/2019 7:00 AM EDT Diabetes mellitus screening LIPID PANEL WITH REFLEX TO DIRECT LDL Routine 07/12/2019 7:00 AM EDT Lipid screening VENIPUNCTURE Routine 07/12/2019 7:00 AM EDT Diabetes mellitus screening documented in this encounter Results * Due to [place] state law, this organization might not be [...] diagnosis of diabetes in children. According to [place] Diabetes Association (ADA) guidelines, hemoglobin A1c <7.0% represents optimal control in non- diabetic patients. Different metrics may apply to specific patient populations. Standards of Medical Care in Diabetes(ADA). Estimated Average Glucose 97 mg/dL (calc) [facility] 07/12/2019 7:00 AM EDT 07/12/2019 9:38 AM EDT Narrative Resulting Agency Comment [id number] us Michelle Zavala NP LABORATORY Final Result [facility] [address] [place] [address] * LIPID PANEL WITH REFLEX TO DIRECT [...] of LDL-C. Gunnar ROBLES et al. ANAMIKA. 2013;310(21): 6145-5796 (http://education.Piccsy/faq/BDD786) CHOL/HDL Ratio 1.9 <5.0 (calc) [facility] Cholesterol Non-HDL 79 <130 mg/dL (calc) [facility] Comment: For patients with diabetes plus 1 major ASCVD risk factor, treating to a non-HDL-C goal of <100 mg/dL (LDL-C of <70 mg/dL) is considered a therapeutic option. 07/12/2019 7:00 AM EDT 07/12/2019 9:38 AM EDT Narrative Resulting Agency Comment [id number] Michelle Zavala NP LABORATORY Final Result Performing Organization Address City/State/[facility] Co de Phone Number [facility] [address] [place] [address] * BASIC METABOLIC PANEL WITH (GFR) (07/12/2019 7:00 AM EDT) [facility] Glucose 88 65 - 99 mg/dL [...] needs for GFR calculation. Resulting Agency Comment [id number] Michelle Zavala NP LABORATORY Final Result Performing Organization Address City/State/[facility] Co de Phone Number [facility] [address] [place] [address] documented in this encounter Visit Diagnoses Diagnosis Diabetes mellitus screening Screening for diabetes mellitus Lipid screening Screening for lipoid disorders documented in this encounter Care Teams Pharmacy Technician Trainee Relationship Specialty Start Date End Date Michelle Zavala NP [address] [place] [id number] PCP - General Internal Medicine 03/06/19 10/10/22 documented as of this encounter
--- OUTSIDE RECORDS SUMMARY | 2025-01-08 17:58 | XMS_ITS | Encounter Summary ---
Author Organization [facility] Address [address] [place] [address] Care Team Providers Care Renal Nurse Name Role Phone Unavailable Primary Care Provider Unavailabl e Prior Encounters Date Type Department Care Team Description 11/28/2023 8:00 AM EST Office Visit [facility] [address] [facility], [facility] & [address] [place] [phone] Tiny Roblero, DMD 11/17/2023 3:15 PM EST Office Visit [facility] [address] [facility], [facility] & [address] [place] [phone] Tiny Roblero, DMD 11/13/2023 2:15 PM EST Office Visit [facility] [address] [facility], [facility] & [address] [place] [phone] Alma Brown Encounter for dental examination and cleaning without abnormal findings (Primary Dx) 11/13/2023 2:00 PM EST Office Visit [facility] [address] [facility], [facility] 2 & [address] [place] [address] Tiny Roblero, DMD Encounter for dental examination and cleaning without abnormal findings (Primary Dx) 05/12/2023 7:00 AM EDT Office Visit [facility] [address] [facility], [facility] [address] & [address] [place] [phone] Alma Brown 05/12/2023 7:00 AM EDT Office Visit [facility] [address] [facility], [facility] [address] & [address] [place] [phone] Tiny Roblero, DMD 09/27/2022 Travel 09/27/2022 9:00 AM EST Office Visit [facility] [address] [facility], [facility] [address] & [address] [place] [phone] KevinAlma ramirez, 09/27/2022 8:00 AM EST Office Visit [facility] [address] [facility], [facility] [address] & [address] [place] [phone] Tiny Roblero, DMD Last Filed Vital Signs [...] Routine 11/28/2023 8:00 AM EST GP CLEAR DELIVERY CREW MEMBER CONSULTATION Routine 11/17/2023 3:15 PM EST ADJUNCTIVE [...] and cleaning without abnormal findings 11/13/2023 Insurance [facility] [facility] [facility] [employer]
--- OUTSIDE RECORDS SUMMARY | 2025-01-08 17:58 | XMS_ITS | Clinical Summary ---
Author Organization [facility] Address [address] [place] [address] Care Team Providers Care Lead Etl Developer Name Role Phone Unavailable Primary Care Provider Unavailabl e Allergies No known active allergies Medications [place]-3 Fatty Acids (FISH OIL) 1000 MG Cap [...] complete this topic Procedures * Due to [employer] law, this organization might not be sharing negative HIV tests. Procedure Name Priority Date/Time Associated Diagnosis Comments SCREENING MAMMOGRAPHY BILATERAL, 2 VIEWS EACH BREAST, INCLUDING CAD 01/24/2019 PAP SMEAR 11/20/2017 from Last 3 Months or Most Recently Relevant to Health Maintenance Results * Due to [place] [employer] law, this organization might not be sharing negative HIV tests. * SCREENING MAMMOGRAPHY BILATERAL, 2 VIEWS EACH BREAST, INCLUDING CAD (01/24/2019) 01/24/2019 us Unknown Provider GENERAL IMAGING- OTHER Final Re sult * PAP SMEAR (11/20/2017) us Non Rmg Unknown Pcp PATHOLOGY Final Result from Last 3 Months or Most Recently Relevant to Health Maintenance
--- OUTSIDE RECORDS SUMMARY | 2025-01-08 17:58 | XMS_ITS | Clinical Summary ---
Author Organization [facility] Address [address] [place] [address] Care Team Providers Care Business Analytics Faculty Member Name Role Phone Unavailable Primary Care Provider [...] Most Recently Relevant to Health Maintenance Insurance [facility] PPO Member Subscriber Plan / Payer (Ef fective 2023-Present) Name:Toya Perez Relation to Subscriber:Self Name:Toya Perez Payer ID:[id number] Type:Not on file Address: [address] [phone] [facility]
== END 2025-01-08 16:10 | disposition home or self-care (01) ==
LOC: HO.HMCFM 15:22
PROVIDERS: PCP Physician Assistant; Visit Provider Physician Assistant
DX: Z00.00 Encounter for general adult medical examination without abnormal findings (principal); M85.80 Other specified disorders of bone density and structure, unspecified site

== ENCOUNTER → 2025-01-08 15:21 | Outpatient (BNVA) | payer OTHER, SELFPAY | PROVIDERS: PCP Physician Assistant; Visit Provider Physician Assistant | DX: Z00.00 Encounter for general adult medical examination without abnormal findings (principal); M85.80 Other specified disorders of bone density and structure, unspecified site | CPT/HCPCS: 96127 ==

== ENCOUNTER 2025-01-28 08:22 | Outpatient (AMB) | payer OTHER, SELFPAY ==
[2025-01-28 08:25] VITALS: BP 108/68; PULSE 78; O2SAT 98; BMI 22.3
--- NOTE | 2025-01-28 08:25 | MHC.OFFVIS ---
Vital Signs 01/28/25 08:25 Height 5 ft 3.5 in Weight 128 lb 1.417 oz BMI 22.3 BP 108/68 Blood Pressure Location Lt brachial Position Sitting Pulse 78 Pulse Source Pulse Oximeter Pulse Oximetry (%) 98 Oxygen Delivery Method Room Air Intake Visit Reasons: Osteopenia Intake Note: Patient present today for Osteopenia office visit. Radiophone Operator Required: No Accompanied by: Self / Same As Patient Allergies No Known Allergies Allergy (Verified 01/28/25 08:28) Medication List - Last Reconciled 01/28/25 by Shirley Cristina MD ascorbate calcium (vitamin C) 500 mg PO DAILY bimatoprost 0.03% (Latisse) 1 appl topical BEDTIME [calcium 360 PO] cholecalciferol (vitamin D3) , [fish oil 1200 PO] [milk thistle PO] [milk thistle 240 PO] [strontium 680 PO] [vitamin d3 1000 PO] HPI Comments Details: 54-year-old female coming in today for initial evaluation of osteopenia of the hip. Bone density scan done 10/10/2024: Showed T-score of-0.8 at the lumbar spine which is normal bone density,-1.1 at the left total hip, and-1.6 at the left femoral neck both consistent with osteopenia of the hip. FRAX score 5% for major osteoporotic fracture and 0.5% for hip fracture does not meet treatment criteria. Fracture History: none Height loss: none Back pain: low back pain DJD chronic pain Family history: osteopenia in mother , no hip fracture in parents Menstrual hx: menopause at 52 yrs December 2022, menarche: 14 years, regular periods, no pregnancies, , not on OCPs for long periods of times, no HRT Secondary risk factors: Steroid use: None Hyperthyroidism: Neg Seizure medication use: None Chemo or Radiation use: Neg Heparin Use: Neg History of eating disorder: Negative alf immobilization: Negative History of kidney stones or disease: negative PI Use: Negative Chronic inflammatory lung disease: Negative Chronic inflammatory bowel disease: Negative Daily calcium intake: milk: almond a cup a day, yogurt: half a cup a day, cheese: 2-3 times a week , green leafy vegetables: includes daily Algical supplements with calcium 720 mg daily and Vitamin D intake: 1600 units once a day in algical supplements , taking some additional vitamin D doesnt know the dose Exercise:strength training twice a week, walk 4 times a week an hour , some cardio in addition to this twice a week Smoking history: none, parents both smoked while she was growing up Dental: Has regular dental cleaning, no issues Alcohol: max 2 drinks a month if at all Physical exam General: sitting comfortably in no acute distress HEENT: normocephalic/atraumatic, Neck: supple, symmetrical, no thyromegaly , no dorsocervical or supraclavicular fat pads Cardiac: normal heart sounds Pulm: normal breath sounds B/L, no added breath sounds Abd: not distended, no tenderness Extremities: no edema, no signs of myxedema Laboratory Tests 09/09/24 07:32 Creatinine 0.77 Estimated GFR > 60 TSH 3.74 EXAMINATION: Dual-Energy X-ray Absorptiometry - Bone Density Study 10/10/24 HISTORY: Estrogen deficiency TECHNIQUE: [employer] Dual energy absorptiometry (DEXA) of the lumbar spine, total left hip, and femoral neck was performed. COMPARISON: There are no prior studies for comparison. FINDINGS: The bone mineral density of the lumbar spine is 1.083 with a T-score of -0.8, and a Z-score of 0.2. The bone mineral density of the left total hip is 0.865 with a T-score of -1.1, and a Z-score of -0.3. The bone mineral density of the left femoral neck is 0.819 with a T-score of -1.6, and a Z-score of -0.4. FRACTURE RISK: The FRAX index suggests a risk of major osteoporotic fracture of 5.0%, and of hip fracture 0.5%. MM/XR DEXA axial skeleton IMPRESSION: Based on bone mineral density, and according to World Health Organization (WHO) criteria, the diagnosis is consistent with osteopenia. [facility] Medical History (Updated 01/28/25 @ 09:05 by Shirley Cristina MD) BCC (basal cell carcinoma of skin) Family History Paternal Grandmother FH: mental illness Father Alcoholic Other Skin cancer Substance abuse Social History (Updated 01/08/25 @ 15:46 by Ryanne Lancaster CMA) Housing: House Alcohol intake: current Comment: 0-2 monthly Patient Tobacco Use Status: Never used Tobacco e-Cigarette/Vaping Use: Never Used Second Hand Smoke Exposure: No service: No Current occupational status: employed Current occupation: Theraputic training and support Current occupational exposures/hazards: No Cognitive needs: No Hearing needs: No Vision needs: Yes (glasses) Physical Exam Vital Signs: Last Vital Signs Pulse 78 01/28/25 08:25 BP 108/68 01/28/25 08:25 Pulse Ox 98 01/28/25 08:25 Oxygen Delivery Method Room Air 01/28/25 08:25 BMI result Body Mass Index 22.3 Assessment & Plan Assessment & Plan (1) Osteopenia: Code(s): M85.80 - Other specified disorders of bone density and structure, unspecified site Category: Medical Qualifiers: Osteopenia location: hip Laterality: left Qualified Code(s): M85.852 - Other specified disorders of bone density and structure, left thigh Plan: 54-year-old female coming in today for initial evaluation of osteopenia. Bone density scan done 10/10/2024: Showed T-score of-0.8 at the lumbar spine which is normal bone density,-1.1 at the left total hip, and-1.6 at the left femoral neck both consistent with osteopenia of the hip. FRAX score 5% for major osteoporotic fracture and 0.5% for hip fracture does not meet treatment criteria. We went over the role of conservative measures such as calcium and vitamin-D for bone health. I also discussed the role of weight-bearing exercise including wearing a weighted vest for walking. Patient is also on strontium citrate, I discussed with her that strontium citrate has not been proven to increase bone density are reduce fractures, it was strontium ranelate whihc is known as a weak antiresorptive agent and more effective osteoporosis agents are available when treatment is required. Although strontium robustly increases measured BMD, some of this effect represents artifact from the accumulation of strontium in bone . The fixer supervisor discontinued marketing and distribution in 2017 In 2013, the Medicines Agency recommended restriction in the use of strontium based upon an analysis of pooled data showing an increased risk of myocardial infarction with use of strontium ranelate and other, previously identified serious risks (severe skin reactions, thromboembolic disease) However, in subsequent observational studies ([place] Clinical Practice Research [employer]atalink and a nationwide [place] study), the risk of myocardial infarction was not increased with use of strontium ranelate. Regardless at this time data is conflicting, and if patient required therapy for osteoporosis, other stronger agents are available. She does not meet treatment criteria for osteoporosis and conservative measures to improve bone health were recommended. Plan: -vitamin-D 1773-2195 units daily, I do not see a 25 hydroxy vitamin-D level in the chart, primary care can check this for the patient -calcium 1000 mg from diet and supplement -role of weight-bearing exercise discussed Patient does not need follow up with endocrinology at this time, she can go back to her primary care provider. A bone density can be repeated in 3-5 years. Plan I spent 45 minutes in reviewing the record, seeing the patient and documenting in the medical record. Patient Instructions: Vitamin D 1000 to 2000 units daily , get your primary care to also check your vitamin D levels Calcium 1000 mg from diet / supplement together ( milk , cheese, yogurt, kale, broccoli, spinach) Exercise : weight bearing exercise is good for bone There is no proven role of strontium citrate in helping with osteoporosis Coding Level of Care Code New Pt Level 4 (70202) Diagnoses Osteopenia of left hip M85.852 Osteopenia location: hip Laterality: left Time Spent (min) 45
--- OUTSIDE RECORDS SUMMARY | 2025-01-28 08:39 | XMS_ITS | Clinical Summary ---
Author Organization [facility] Address [address] [place] [address] Care Team Providers Care Skating Rink Ice Maker Name Role Phone Unavailable Primary Care Provider [...] Most Recently Relevant to Health Maintenance Insurance [facility] PPO Member Subscriber Plan / Payer (Ef fective 2023-Present) Name:Toya Perez Relation to Subscriber:Self Name:Toya Perez Payer ID:[id number] Type:Not on file Address: [address] [address] [facility]
--- OUTSIDE RECORDS SUMMARY | 2025-01-28 08:39 | XMS_ITS | Encounter Summary ---
Author Organization [facility] Address [address] [place] [address] Care Team Providers Care Manager Of Purchasing Name Role Phone Unavailable Primary Care Provider Unavailabl e Prior Encounters Date Type Department Care Team Description 11/28/2023 8:00 AM EST Office Visit [facility] [address] [facility] & [address] [place] [phone] Tiny Roblero, DMD 11/17/2023 3:15 PM EST Office Visit [facility] [address] [facility] & [address] [place] [phone] Tiny Roblero, DMD 11/13/2023 2:15 PM EST Office Visit [facility] [address] [facility] & [address] [place] [phone] Alma Brown [facility] Encounter for dental examination and cleaning without abnormal findings (Primary Dx) 11/13/2023 2:00 PM EST Office Visit [facility] [address] [facility], [facility] 2 & [address] [place] [phone] Tiny Roblero, DMD Encounter for dental examination and cleaning without abnormal findings (Primary Dx) 05/12/2023 7:00 AM EDT Office Visit [facility] [address] [facility], [facility] 2 & [address] [place] [phone] Alma Brown [facility] 05/12/2023 7:00 AM EDT Office Visit [facility] [address] [facility], [facility] [address] & [address] [place] [phone] Tiny Roblero, DMD 09/27/2022 Travel 09/27/2022 9:00 AM EST Office Visit [facility] [address] [facility], [facility] 2 & [address] [place] [phone] KevinAlma ramirez, [facility] 09/27/2022 8:00 AM EST Office Visit [facility] [address] [facility], [facility] 2 & [address] [place] [phone] Tiny Roblero, DMD Last Filed Vital Signs [...] Routine 11/28/2023 8:00 AM EST GP CLEAR SSDS MK 2 ADVANCED OPERATOR CONSULTATION Routine 11/17/2023 3:15 PM EST ADJUNCTIVE [...] and cleaning without abnormal findings 11/13/2023 Insurance [facility] [place] [address] [place] [phone] [facility]
--- OUTSIDE RECORDS SUMMARY | 2025-01-28 08:40 | XMS_ITS | Encounter Summary ---
Author Organization [facility] Address [address] [place] [address] Care Team Providers Care Research Program Assistant Name Role Phone Michelle Zavala NP Primary Care Provider [phone] Encounter Details Date Type Department Care Team ([facility] st Contact Info) Description 07/12/2019 [facility] Internal Medicine [address] [place] [phone] Michelle Zavala NP [address] [place] [phone] Social History Tobacco Use Types Packs/Day Years [...] NP - 07/12/2019 7:00 AM EDT Normal/stable. [employer] message sent. documented in this encounter Plan of Treatment Not on file documented as of this encounter Procedures * Due to [place] state law, this organization might not be sharing negative HIV tests. Procedure Name Priority Date/Time Associated Diagnosis Comments HEMOGLOBIN A1C Routine 07/12/2019 7:00 AM EDT Diabetes mellitus screening LIPID PANEL WITH REFLEX TO DIRECT LDL Routine 07/12/2019 7:00 AM EDT Lipid screening VENIPUNCTURE Routine 07/12/2019 7:00 AM EDT Diabetes mellitus screening documented in this encounter Results * Due to [place] state law, this organization might not be [...] diagnosis of diabetes in children. According to [place] Diabetes Association (ADA) guidelines, hemoglobin A1c <7.0% represents optimal control in non- diabetic patients. Different metrics may apply to specific patient populations. Standards of Medical Care in Diabetes(ADA). Estimated Average Glucose 97 mg/dL (calc) [facility] 07/12/2019 7:00 AM EDT 07/12/2019 9:38 AM EDT Narrative Resulting Agency Comment [id number] us Michelle Zavala NP LABORATORY Final Result [facility] [address] [place] [address] * LIPID PANEL WITH REFLEX TO DIRECT [...] of LDL-C. Gunnar ROBLES et al. ANAMIKA. 2013;310(80): 4604-2862 (http://education.TempMine/faq/ODW715) CHOL/HDL Ratio 1.9 <5.0 (calc) [facility] Cholesterol Non-HDL 79 <130 mg/dL (calc) [facility] Comment: For patients with diabetes plus 1 major ASCVD risk factor, treating to a non-HDL-C goal of <100 mg/dL (LDL-C of <70 mg/dL) is considered a therapeutic option. 07/12/2019 7:00 AM EDT 07/12/2019 9:38 AM EDT Narrative Resulting Agency Comment [id number] Michelle Zavala NP LABORATORY Final Result Performing Organization Address City/State/[facility] Co de Phone Number [facility] [address] [place] [address] * BASIC METABOLIC PANEL WITH (GFR) (07/12/2019 7:00 AM EDT) [facility] Glucose 88 65 - 99 mg/dL [...] needs for GFR calculation. Resulting Agency Comment [id number] Michelle Zavala NP LABORATORY Final Result Performing Organization Address City/State/[facility] Co de Phone Number [facility] [address] [place] [address] documented in this encounter Visit Diagnoses Diagnosis Diabetes mellitus screening Screening for diabetes mellitus Lipid screening Screening for lipoid disorders documented in this encounter Care Teams Research Program Assistant Relationship Specialty Start Date End Date Michelle Zavala NP [address] [place] [phone] PCP - General Internal Medicine 03/06/19 10/10/22 documented as of this encounter
--- OUTSIDE RECORDS SUMMARY | 2025-01-28 08:40 | XMS_ITS | Clinical Summary ---
Author Organization [facility] Address [address] [place] [address] Care Team Providers Care Volunteer Manager Name Role Phone Unavailable Primary Care Provider Unavailabl e Allergies No known active allergies Medications [place]-3 Fatty Acids (FISH OIL) 1000 MG Cap [...] (1 - 2023-2 5 season) 2024 Influenza (Season Ended) 2025 HPV Vaccine Aged Out No longer eligi [...] complete this topic Procedures * Due to [employer] law, this organization might not be sharing negative HIV tests. Procedure Name Priority Date/Time Associated Diagnosis Comments SCREENING MAMMOGRAPHY BILATERAL, 2 VIEWS EACH BREAST, INCLUDING CAD 01/24/2019 PAP SMEAR 11/20/2017 from Last 3 Months or Most Recently Relevant to Health Maintenance Results * Due to [place] [employer] law, this organization might not be sharing negative HIV tests. * SCREENING MAMMOGRAPHY BILATERAL, 2 VIEWS EACH BREAST, INCLUDING CAD (01/24/2019) 01/24/2019 us Unknown Provider GENERAL IMAGING- OTHER Final Re sult * PAP SMEAR (11/20/2017) us Non Rmg Unknown Pcp PATHOLOGY Final Result from Last 3 Months or Most Recently Relevant to Health Maintenance
== END 2025-01-28 09:04 | disposition home or self-care (01) ==
LOC: HO.ENCR 08:23
PROVIDERS: PCP Physician Assistant; Visit Provider Student in an Organized Health Care Education/Training Program
DX: M85.852 Other specified disorders of bone density and structure, left thigh (principal)
CPT/HCPCS: 99204

== ENCOUNTER → 2025-01-28 08:22 | Outpatient (BNVA) | payer OTHER, SELFPAY | PROVIDERS: PCP Physician Assistant; Visit Provider Student in an Organized Health Care Education/Training Program ==

== ENCOUNTER 2025-01-31 07:33 | Outpatient (REF) | payer OTHER, SELFPAY ==
--- OUTSIDE RECORDS SUMMARY | 2025-01-31 07:34 | XMS_ITS | Clinical Summary ---
Author Organization [facility] Address [address] [place] [address] Care Team Providers Care Waste Picker Name Role Phone Unavailable Primary Care Provider Unavailabl e Allergies No known active allergies Medications Hindman-3 Fatty Acids (FISH OIL) 1000 MG Cap [...] complete this topic Procedures * Due to [employer] law, this organization might not be sharing negative HIV tests. Procedure Name Priority Date/Time Associated Diagnosis Comments SCREENING MAMMOGRAPHY BILATERAL, 2 VIEWS EACH BREAST, INCLUDING CAD 01/24/2019 PAP SMEAR 11/20/2017 from Last 3 Months or Most Recently Relevant to Health Maintenance Results * Due to [place] [employer] law, this organization might not be sharing negative HIV tests. * SCREENING MAMMOGRAPHY BILATERAL, 2 VIEWS EACH BREAST, INCLUDING CAD (01/24/2019) 01/24/2019 us Unknown Provider GENERAL IMAGING- OTHER Final Re sult * PAP SMEAR (11/20/2017) us Non Rmg Unknown Pcp PATHOLOGY Final Result from Last 3 Months or Most Recently Relevant to Health Maintenance
--- OUTSIDE RECORDS SUMMARY | 2025-01-31 07:34 | XMS_ITS | Clinical Summary ---
Author Organization [facility] Address [address] [place] [address] Care Team Providers Care Behavioral Technician Name Role Phone Unavailable Primary Care Provider [...] Most Recently Relevant to Health Maintenance Insurance [facility] PPO Member Subscriber Plan / Payer (Ef fective 2023-Present) Name:Toya Perez Relation to Subscriber:Self Name:Toya Perez Payer ID:[id number] Type:Not on file Address: [address] [phone] [facility]
--- OUTSIDE RECORDS SUMMARY | 2025-01-31 07:34 | XMS_ITS | Encounter Summary ---
Author Organization [facility] Address [address] [place] [address] Care Team Providers Care Camper Assembler Name Role Phone Michelle Zavala NP Primary Care Provider [phone] Encounter Details Date Type Department Care Team ([facility] st Contact Info) Description 07/12/2019 [facility] Internal Medicine [address] [place] [phone] Michelle Zavala NP [address] [place] [phone] Social History Tobacco Use Types Packs/Day Years [...] NP - 07/12/2019 7:00 AM EDT Normal/stable. [employer] message sent. documented in this encounter Plan of Treatment Not on file documented as of this encounter Procedures * Due to [place] state law, this organization might not be sharing negative HIV tests. Procedure Name Priority Date/Time Associated Diagnosis Comments HEMOGLOBIN A1C Routine 07/12/2019 7:00 AM EDT Diabetes mellitus screening LIPID PANEL WITH REFLEX TO DIRECT LDL Routine 07/12/2019 7:00 AM EDT Lipid screening VENIPUNCTURE Routine 07/12/2019 7:00 AM EDT Diabetes mellitus screening documented in this encounter Results * Due to [place] state law, this organization might not be [...] diagnosis of diabetes in children. According to [place] Diabetes Association (ADA) guidelines, hemoglobin A1c <7.0% represents optimal control in non- diabetic patients. Different metrics may apply to specific patient populations. Standards of Medical Care in Diabetes(ADA). Estimated Average Glucose 97 mg/dL (calc) [facility] 07/12/2019 7:00 AM EDT 07/12/2019 9:38 AM EDT Narrative Resulting Agency Comment [id number] us Michelle Zavala NP LABORATORY Final Result [facility] [address] [place] [address] * LIPID PANEL WITH REFLEX TO DIRECT [...] of LDL-C. Gunnar ROBLES et al. ANAMIKA. 2013;310(08): 9707-8335 (http://education.MENA SOCIAL/faq/VKI801) CHOL/HDL Ratio 1.9 <5.0 (calc) [facility] Cholesterol Non-HDL 79 <130 mg/dL (calc) [facility] Comment: For patients with diabetes plus 1 major ASCVD risk factor, treating to a non-HDL-C goal of <100 mg/dL (LDL-C of <70 mg/dL) is considered a therapeutic option. 07/12/2019 7:00 AM EDT 07/12/2019 9:38 AM EDT Narrative Resulting Agency Comment [id number] Michelle Zavala NP LABORATORY Final Result Performing Organization Address City/State/[facility] Co de Phone Number [facility] [address] [place] [address] * BASIC METABOLIC PANEL WITH (GFR) (07/12/2019 7:00 AM EDT) [facility] Glucose 88 65 - 99 [...] needs for GFR calculation. Resulting Agency Comment [id number] Michelle Zavala NP LABORATORY Final Result Performing Organization Address City/State/[facility] Co de Phone Number [facility] [address] [place] [address] documented in this encounter Visit Diagnoses Diagnosis Diabetes mellitus screening Screening for diabetes mellitus Lipid screening Screening for lipoid disorders documented in this encounter Care Teams Camper Assembler Relationship Specialty Start Date End Date Michelle Zavala NP [address] [place] [phone] PCP - General Internal Medicine 03/06/19 10/10/22 documented as of this encounter
[2025-01-31 11:47] LABS: Free T4 (Free Thyroxine) 0.99 ng/dL (0.71-1.85); Thyroid Stimulating Hormone 2.55 uIU/mL (0.32-4.0)
[2025-02-01 07:14] LABS: DHEA Sulfate 115 mcg/dL (5-167); Follicle Stimulating Hormone 94.6 mIU/mL
[2025-02-01 07:43] LABS: Triiodothyronine T3 Free 2.8 pg/mL (2.3-4.2)
[2025-02-04 18:08] LABS: Testosterone, Free 1.7 pg/mL (0.1-6.4); Testosterone, Total 24 ng/dL (2-45)
[2025-02-13 02:33] LABS: Estradiol Free 0.05 pg/mL; Estradiol, Ultrasensitive 3 pg/mL
== END 2025-01-31 07:34 | disposition home or self-care (01) ==
LOC: HO.WFDLDS 07:33
PROVIDERS: Visit Provider Physician Assistant
DX: N91.2 Amenorrhea, unspecified (principal)
CPT/HCPCS: 36415; 82627; 82670; 82681; 83001; 84402; 84403; 84439; 84443; 84481

== ENCOUNTER 2025-03-03 07:32 | Outpatient (REF) | payer OTHER, SELFPAY ==
--- OUTSIDE RECORDS SUMMARY | 2025-03-03 07:35 | XMS_ITS | Encounter Summary ---
Author Organization [facility] Address [address] [place] [address] Care Team Providers Care Brushing Operator Name Role Phone Unavailable Primary Care Provider Unavailabl e Prior Encounters Date Type Department Care Team Description 11/28/2023 8:00 AM EST Office Visit [facility] [address] [facility], [facility] & [address] [place] [phone] Tiny Roblero, DMD 11/17/2023 3:15 PM EST Office Visit [facility] [address] [facility], [facility] & [address] [place] [phone] Tiny Roblero, MC 11/13/2023 2:15 PM EST Office Visit [facility] [address] [facility], [facility] & [address] [place] [phone] Alma Brown, [facility] Encounter for dental examination and cleaning without abnormal findings (Primary Dx) 11/13/2023 2:00 PM EST Office Visit [facility] [address] [facility], [facility] [address] [place] [phone] Tiny Roblero, DMD Encounter for dental examination and cleaning without abnormal findings (Primary Dx) 05/12/2023 7:00 AM EDT Office Visit [facility] [address] [facility], [facility] & [address] [place] [phone] Alma Brown Alvina 05/12/2023 7:00 AM EDT Office Visit [facility] [address] [facility], [facility] & [address] [place] [phone] Tiny Roblero, MC 09/27/2022 Travel 09/27/2022 9:00 AM EST Office Visit [facility] [address] [facility], [facility] & [address] [place] [phone] Alma Brown, [facility] 09/27/2022 8:00 AM EST Office Visit [facility] [address] [facility], [facility] & [address] [place] [phone] Tiny Roblero, DMD Last Filed Vital Signs [...] Routine 11/28/2023 8:00 AM EST GP CLEAR HAND STRAIGHTENER CONSULTATION Routine 11/17/2023 3:15 PM EST ADJUNCTIVE [...] and cleaning without abnormal findings 11/13/2023 Insurance [facility] [place] [phone] [facility] P[facility]
[2025-03-13 16:33] LABS: Progesterone <0.1 ng/mL
== END 2025-03-03 07:33 | disposition home or self-care (01) ==
LOC: HO.WFDLDS 07:32
PROVIDERS: Visit Provider Physician Assistant
DX: N91.2 Amenorrhea, unspecified (principal)
CPT/HCPCS: 36415; 84144

== ENCOUNTER 2025-05-02 07:32 | Outpatient (REF) | payer OTHER, SELFPAY ==
--- OUTSIDE RECORDS SUMMARY | 2025-05-02 07:34 | XMS_ITS | Clinical Summary ---
Author Organization [facility] Address [address] [place] [address] Care Team Providers Care Central Supply Worker Name Role Phone Unavailable Primary Care Provider Unavailabl e Allergies No known active allergies Medications [place]-3 Fatty Acids (FISH OIL) 1000 MG Cap [...] - 2023-2 5 season) 2024 Influenza (#1) 2025 HPV Vaccine (No Doses Required) Completed Hep A Aged Out No longer eligi ble based on patient's age to complete this topic Hib Aged Out No longer eligi ble based on patient's age to complete this topic Meningococcal ACWY Aged Out No longer eligible based on patient's age to complete this topic Procedures * Due to [place] law, this organization might not be sharing negative HIV tests. Procedure Name Priority Date/Time Associated Diagnosis Comments SCREENING MAMMOGRAPHY BILATERAL, 2 VIEWS EACH BREAST, INCLUDING CAD 01/24/2019 PAP SMEAR 11/20/2017 from Last 3 Months or Most Recently Relevant to Health Maintenance Results * Due to [place] law, this organization might not be sharing negative HIV tests. * SCREENING MAMMOGRAPHY BILATERAL, 2 VIEWS EACH BREAST, INCLUDING CAD (01/24/2019) 01/24/2019 us Unknown Provider GENERAL IMAGING- OTHER Final Re sult * PAP SMEAR (11/20/2017) us Non R[facility] Unknown Pcp PATHOLOGY Final Result from Last 3 Months or Most Recently Relevant to Health Maintenance
[2025-05-03 03:57] LABS: Follicle Stimulating Hormone 93.7 mIU/mL
[2025-05-08 17:09] LABS: Testosterone, Free 1.2 pg/mL (0.1-6.4)
[2025-05-15 04:34] LABS: Estradiol Free 0.03 pg/mL; Estradiol, Ultrasensitive 2 pg/mL
== END 2025-05-02 07:33 | disposition home or self-care (01) ==
LOC: HO.WFDLDS 07:32
PROVIDERS: Visit Provider Physician Assistant
DX: M85.852 Other specified disorders of bone density and structure, left thigh (principal); F34.1 Dysthymic disorder; N91.2 Amenorrhea, unspecified
CPT/HCPCS: 36415; 82627; 82670; 82681; 83001; 84144; 84402; 84403; 84443

== ENCOUNTER 2025-08-12 08:33 | Outpatient (AMB) | payer OTHER, SELFPAY ==
[2025-08-12 08:40] VITALS: BP 104/60; PULSE 77; TEMP 36.4; O2SAT 99; BMI 21.1
--- NOTE | 2025-08-12 08:40 | AM.OFFWIN_ITS ---
Intake Vital Signs 08/12/25 08:40 Height 5 ft 3.5 in Weight 121 lb BMI 21.1 BP 104/60 Blood Pressure Location Lt brachial Position Sitting Pulse 77 Pulse Source Pulse Oximeter Temp 97.6 F Temp Source Oral Pulse Oximetry (%) 99 Oxygen Delivery Method Room Air Intake Visit Reasons: EP sore throat coughing nausea vomiting Intake Note: Patient presents c/o sore throat, ear pain, eye pain, nasal congestion since last night. Patient states she vomited last night. Patient Tobacco Use Status: Never used Tobacco Allergies No Known Allergies Allergy (Verified 08/12/25 08:42) HPI HPI Comments History of Present Illness Details History - The patient is a 55-year-old female pr esenting with a sore throat x 7days. - The sore throat is located more toward s the front and has been progressively worsening over the past week. - Associated symptoms include difficulty breathing, headache, sinus pressure, nausea, and vomiting, which resolved by the day of the visit. - The patient denies any fever, shortnes s of breath, or wheezing. - The patient reports significant postna christian drip contributing to nausea and vomiting. - There is no history of asthma, COPD, s moking, or vaping. - The patient has not taken any over-the -counter medications for her symptoms. [facility] Medical History (Updated 08/12/25 @ 08:56 by Mihaela Roblero PA-C) BCC (basal cell carcinoma of skin) Family History Paternal Grandmother FH: mental illness Father Alcoholic Other Skin cancer Substance abuse Social History Housing: House Alcohol intake: current Comment: 0-2 monthly Patient Tobacco Use Status: Never used Tobacco e-Cigarette/Vaping Use: Never Used Second Hand Smoke Exposure: No service: No Current occupational status: employed Current occupation: [employer] Current occupational exposures/hazards: No Cognitive needs: No Hearing needs: No Vision needs: Yes (glasses) Review of Systems Narrative Review of Systems - General: Denies fever. - HEENT: Reports sore throat, headache, sinus pressure, and postnasal drip. Denies ear pain. - Respiratory: Reports difficulty breathing. Denies shortness of breath, wheezing, or cough. - Gastrointestinal: Reports nausea and vomiting, resolved by the day of the visit. All systems reviewed and are unremarkable except as noted in HPI Const All systems reviewed & are unremarkable except as noted in HPI and below Physical Exam Exam Exam: Physical Exam General: Cooperative, healthy appearing, comfortable and no acute distress Orientation/consciousness: Patient oriented x3 Limitations: No limitations Head: Normal to inspection Ears: Hearing grossly normal bilaterally, external ears normal, EAC's normal bilaterally and TM's normal bilaterally Nose: Normal external nose present, Normal nares present and No nasal discharge present Face and sinus: Tenderness maxillary sinuses bilaterally Mouth: Normal oral and palatal mucosa present and moist mucous membranes Throat: no exudates, uvula midline, posterior oropharynx erythema Eyes: Appearance normal, both eyes and all related structures Neck: Tenderness present, normal visual inspection, full ROM Respiratory: Clear to auscultation bilaterally. Normal respiratory effort, able to speak in complete sentences, no respiratory distress, not tachypneic, no tripod positioning and no use of accessory muscles Cardiovascular: Regular rate and rhythm. Normal S1 and S2 Skin: No rashes or lesions noted Neuro: Patient oriented x3 Extremities: Normal to inspection and Yes no clubbing, cyanosis or edema Vital Signs: Last Vital Signs Temp 97.6 F 08/12/25 08:40 Pulse 77 08/12/25 08:40 BP 104/60 08/12/25 08:40 Pulse Ox 99 08/12/25 08:40 Oxygen Delivery Method Room Air 08/12/25 08:40 BMI result Body Mass Index 21.1 Assessment & Plan Assessment & Plan (1) Acute viral sinusitis: Code(s): J01.90 - Acute sinusitis, unspecified; B97.89 - Other viral agents as the cause of diseases classified elsewhere Plan Plan Patient was informed and verbally consented to the use of an ambient scribe for clinic note documentation during this visit. - VSS, pt well appearing and PE unremarkable. - Recommend using a Neti pot with distilled water twice daily to alleviate symptoms. - Consider using nasal sprays, such as Flonase, to reduce inflammation. - An allergy pill daily may be beneficial. - Advised that the condition is likely viral and does not require antibiotics. - Explained that symptoms may persist for one to three weeks. Coding Level of Care Code Est Pt Level 3 (12238) Diagnoses Acute viral sinusitis J01.90; B97.89
== END 2025-08-12 09:05 | disposition home or self-care (01) ==
PROVIDERS: PCP Physician Assistant; Visit Provider Physician Assistant
DX: J01.90 Acute sinusitis, unspecified (principal); B97.89 Other viral agents as the cause of diseases classified elsewhere